=== PATIENT | male | born 1955 ===

== ENCOUNTER 2017-05-21 03:48 | Inpatient (IN) | payer MEDICARE ==
[2017-05-21 03:54] VITALS: BMI 33.7
[2017-05-21] MEDS: Sodium Chloride 0.9% 1,000 ML IV SCH ×2 (04:00→18:25)
--- NOTE | 2017-05-21 04:02 | C.PDOC ---
History Of Present Illness 61 year old male with history of bone CA was brought to the ED by EMS accompanied by for possible stroke. Patient's last known well time was 2am as per . states around 2:30 am he was confused and jaw was trembling but she assumed he was sleepy. She awoke later when she heard a thump and saw he had fallen out of bed. EMS notes patient was flaccid to the left side. Patient last had chemotherapy eariler today. Denies fever, vomiting, or diarrhea. Chief Complaint (Nursing): Weakness/Neurological Deficit History Per: EMS, Family ( ) History/Exam Limitations: no limitations Onset/Duration Of Symptoms: Hrs Current Symptoms Are (Timing): Still Present (approximately 1.5 hrs at arrival) Fall Associated With With Symptoms: No Injury As Result Of Fall Recent travel outside of the [facility] States: No Past Medical History Reviewed: Historical Data, Nursing Documentation, Vital Signs Vital Signs: Last Vital Signs Temp 97.9 F 05/21/17 16:00 Pulse 64 05/21/17 18:23 Resp 21 05/21/17 18:23 BP 127/80 05/21/17 18:23 Pulse Ox 96 05/21/17 18:23 - Medical History PMH: HTN, Malignancy Other PMH: multiple myeloma Other Surgeries: bone marrow transplant Family History: States: Unknown Family Hx - Social History Hx Tobacco Use: No Hx Alcohol Use: No Hx Substance Use: No Review Of Systems Constitutional: Negative for: Fever Cardiovascular: Negative for: Chest Pain, Palpitations Respiratory: Negative for: Cough, Shortness of Breath Gastrointestinal: Negative for: Vomiting, Diarrhea Musculoskeletal: Negative for: Neck Pain Neurological: Positive for: Weakness (left sided ), Change in Speech, Seizures, Other (haw tremor ) Physical Exam - Physical Exam Appears: In Acute Distress Skin: Warm, Dry, No Diaphoretic Head: Atraumatic, Normacephalic, No Tenderness, No Swelling, No Abrasion, No Laceration Eye(s): bilateral: Normal Inspection, PERRL, EOMI Chest: Symmetrical, No Deformity Cardiovascular: Rhythm Regular, No Murmur Respiratory: Normal Breath Sounds, No Rales, No Rhonchi, No Wheezing Extremity: No Pedal Edema, Capillary Refill (good capillary refill, less than two seconds ), No Deformity, No Swelling, Other (On exam, patient is moving upper extremities spontaneously. Lower extremtities are able to be moved with stimulation. ) ED Course And Treatment - Laboratory Results Result Diagrams: 05/21/17 04:04 05/21/17 04:04 - CT Scan/US Head CT Other Rad Studies (CT/US): Read By Radiologist, Radiology Report Reviewed CT/US Interpretation: FINDINGS: BRAIN: Diffuse, age-related cortical atrophy. No significant acute abnormality identified. No acute hemorrhage seen within the brain. No acute. extra-axial fluid collections visualized. No evidence of significant mass effect within the brain. No CT. findings to suggest an acute, large territorial infarct, however, small or early acute infarcts may not be. visible on CT. VENTRICLES: No evidence of significant hydrocephalus. BONES/ JOINTS: No acute fractures or other acute bony abnormality noted. SOFT TISSUES : No acute abnormality of the visualized soft tissues is seen. SINUSES: Mucous retention cyst and mucosal thickening in the right sphenoid sinus. There is also. high density material in the right sphenoid sinus. This finding most likely represents inspissated. secretions from longstanding sinus inflammatory disease. It can also be seen with fungal sinusitis,. however, and recommend clinical correlation. Remaining visualized paranasal sinuses appear clear. MASTOID AIR CELLS: Mastoid air cells appear clear. IMPRESSION: - No acute findings seen within the brain. - Right sphenoid sinus disease. Please see above for a full description. - See above for remaining findings. Progress Note: Code Stroke was activated. Head CT was negative. Spoke with neurology international project manager, Dr. Booker, who suggests No TPA is needed. Dr. Ayala agrees to admit patient to ICU. Dr. De Paz, medicine international project manager, was notified. Tremors of the jaw persist on re-evaluation. Patient given Atrivan 1 mg IV. NIHSS Stroke Scale - Date/Time Evaluation Performed Date Performed: 05/21/17 Time Performed: 04:00 When Was NIHSS Performed: Baseline - How Severe is the Stoke Level of Consciousness: 3=Unresponsive LOC to Questions: 2=Neither correct LOC to commands: 2=Neither correct Best Gaze: 2=Forced deviation Visual: 3=Bilateral Facial: 1=Minor asymmetry Motor Arm - Left: 4=No movement Motor Arm - Right: 3=No effort against gravity (falls immediately) Motor Leg - Left: 4=No movement Motor Leg - Right: 3=No effort against gravity (falls immediately) Limb Ataxia: 0=Absent Sensory: 2=Severe to total loss Best Language: 3=Mute Dysarthia: 2=Severe, near unintelligible or worse Extinction & Inattention (Neglect): 1=Partial neglect (mild wilton-attention) Score: 35 Severity Of Stroke: 21-42= Severe Stroke NIHSS Stroke Scale 2 - Date/Time Evaluation Performed Date Performed: 05/21/17 Time Performed: 04:00 - How Severe is the Stroke Level of Consciousness: 3=Unresponsive LOC to Questions: 2=Neither correct LOC to commands: 2=Neither correct Best Gaze: 2=Forced deviation Facial: 1=Minor asymmetry Motor Arm - Left: 2=Falls before 10 sec Motor Arm - Right: 3=No effort against gravity (falls immediately) Motor Leg - Left: 4=No movement Motor Leg - Right: 4=No movement Limb Ataxia: 0=Absent Sensory: 1=Mild to moderate loss Best Language: 3=Mute Dysarthia: 2=Severe, near unintelligible or worse Extinction & Inattention (Neglect): 1=Partial neglect (mild wilton-attention) Disposition Discussed With : Barrera De Paz Doctor Will See Patient In The: Hospital Counseled Patient/Family Regarding: Diagnosis - Disposition Disposition: HOSPITALIZED Disposition Time: 04:51 Condition: GUARDED - POA Present On Arrival: None - Clinical Impression Clinical Impression: Flaccid paralysis affecting one side of the body, Multiple myeloma, Seizure disorder - Scribe Statement The provider has reviewed the documentation as recorded by the Scribbud Otoole All medical record entries made by the Shoshanaibbud were at my direction and personally dictated by me. I have reviewed the chart and agree that the record accurately reflects my personal performance of the history, physical exam, medical decision making, and the department course for this patient. I have also personally directed, reviewed, and agree with the discharge instructions and disposition.
[2017-05-21 04:13] LABS: BASO % 0.1 % (0.0-2.0); HEMATOCRIT 35.7 % (35.0-51.0); LYMPH # 0.7 K/uL (1.0-4.3); MEAN CELL VOLUME 95.6 fL (80.0-94.0); MEAN CORPUSCULAR HEMOGLOBIN 30.8 pg (27.0-31.0); MEAN CORPUSCULAR HGB CONC 32.2 g/dL (33.0-37.0); MEAN PLATELET VOLUME 9.1 fL (7.2-11.7); MONO # 0.1 K/uL (0.0-0.8); MONO % 1.1 % (0.0-10.0); NRBC % 0.2 % (0.0-2.0); PLATELET COUNT 215 K/uL (130-400); RED CELL DISTRIBUTION WIDTH 21.5 % (11.5-14.5); WHITE BLOOD COUNT 8.6 K/uL (4.8-10.8)
[2017-05-21] MEDS ORDERED: Sodium Chloride 0.9% 1,000 ML ONE (04:22)
--- NOTE | 2017-05-21 04:31 | CT ---
EXAM: CT Head Without Intravenous Contrast EXAM DATE/TIME: 05/21/2017 3:55 AM CLINICAL HISTORY: 61 years old, male; Pain and signs and symptoms; Weakness, facial; Headache; Additional info: Code stroke bed 5 TECHNIQUE: Axial computed tomography images of the head/brain without intravenous contrast. All CT scans at this facility use one or more dose reduction techniques, viz.: automated exposure control; ma/kV adjustment per patient size (including targeted exams where dose is matched to indication; i.e. head); or iterative reconstruction technique. Sagittal reformatted images were created and reviewed. COMPARISON: No relevant prior studies available. FINDINGS: BRAIN: Diffuse, age-related cortical atrophy. No significant acute abnormality identified. No acute hemorrhage seen within the brain. No acute extra-axial fluid collections visualized. No evidence of significant mass effect within the brain. No CT findings to suggest an acute, large territorial infarct, however, small or early acute infarcts may not be visible on CT. VENTRICLES: No evidence of significant hydrocephalus. BONES/JOINTS: No acute fractures or other acute bony abnormality noted. SOFT TISSUES: No acute abnormality of the visualized soft tissues is seen. SINUSES: Mucous retention cyst and mucosal thickening in the right sphenoid sinus. There is also high density material in the right sphenoid sinus. This finding most likely represents inspissated secretions from longstanding sinus inflammatory disease. It can also be seen with fungal sinusitis, however, and recommend clinical correlation. Remaining visualized paranasal sinuses appear clear. MASTOID AIR CELLS: Mastoid air cells appear clear. IMPRESSION: - No acute findings seen within the brain. - Right sphenoid sinus disease. Please see above for a full description. - See above for remaining findings.
[2017-05-21 04:40] LABS: CHLORIDE 103 mmol/L (98-107); SODIUM 139 mmol/L (132-148)
[2017-05-21 04:42] LABS: ALB/GLOB RATIO 1.2 (1.0-2.1); ALKALINE PHOSPHATASE 50 U/L (38-126); AST/SGOT 25 U/L (17-59); BILIRUBIN,TOTAL 0.6 mg/dL (0.2-1.3); BLOOD UREA NITROGEN 16 mg/dL (9-20); CARBON DIOXIDE 17 mmol/L (22-30); CHOLESTEROL 317 mg/dL (0-199); GFR AFRICAN-AMERICAN > 60; GLUCOSE,RANDOM 328 mg/dL (75-110); TOTAL PROTEIN 7.4 g/dL (6.3-8.3)
[2017-05-21 04:43] LABS: ALT/SGPT 44 U/L (21-72); CALCIUM 8.8 mg/dl (8.6-10.4)
[2017-05-21 05:30] LABS: METAMYELOCYTE 1 % (0-0); NEUTROPHIL 88 % (50-75); TOTAL CELLS COUNTED 100
--- NOTE | 2017-05-21 05:55 | CP.PCM.CON ---
History of Present Illness - History of Present Illness History of Present Illness: 61 year old male with history of multiple myeloma ,HTN,DM brought to the ED by EMS accompanied by after being found on the floor. Patient's last known well time was 2am as per . states around 2:30 am he was confused and jaw was trembling but she assumed he was sleepy. She awoke later when she heard a thump and found the patient on the kitchen floor. EMS notes patient was flaccid to the left side. Patient last had chemotherapy 05/20/17. Denies fever, vomiting, or diarrhea. As per ER physician patient was not moving left side when he came in,later was able to move left leg Patient with h/o multiple myeloma s/p allogenic and autologous bone marrow transplants currently on chemotherapy. Patient completed course of radiation to lower back for tumor in the spine after which he had diarrhea. doesnot know whether patient still has diarrhea. He was on Xarelto until 3-4 days ago for prevention of chemo induced thrombosis.After stopping chemo patient was started on aspirin. history from patients ,ER physician Patient doses not follow verbal commands ,moved right upper extremity spontaneously and both lower extremities in response to pain Review of Systems - Review of Systems Systems not reviewed;Unavailable: Unstable Vital Signs, Altered Mental Status Review of Systems: unable to get information from patient Past Patient History - Infectious Disease Hx of Infectious Diseases: None - Past Medical History & Family History Past Medical History?: Yes - Past Social History Smoking Status: Never Smoked Cigar Use: No Alcohol: None Drugs: Denies - ENDOCRINE/METABOLIC Hx Diabetes Mellitus Type 2: Yes - HEMATOLOGICAL/ONCOLOGICAL Hx Blood Disorders: Yes Hx Cancer: Yes (Bone marrow) Other/Comment: pt. undergoing Chemotherapy 3 times a month - PSYCHIATRIC Hx Substance Use: No - SURGICAL HISTORY Hx Surgeries: Yes Other/Comment: uvoectomy - ANESTHESIA Hx Anesthesia: Yes Hx Anesthesia Reactions: No Meds Allergies/Adverse Reactions: Allergies Allergy/AdvReac Type Severity Reaction Status Date / Time prochlorperazine Allergy Verified 05/21/17 04:11 [From Compazine] - Medications Medications: Current Medications Sodium Chloride (Sodium Chloride 0.9%) 1,000 mls @ 100 mls/hr IV .Q10H DAXA Last Admin: 05/21/17 04:00 Dose: 100 mls/hr Physical Exam - Constitutional Appears: No Acute Distress Additional comments: involuntary movements of lower lip on the left and left thumb - Head Exam Head Exam: ATRAUMATIC, NORMAL INSPECTION, NORMOCEPHALIC - Eye Exam Eye Exam: Normal appearance, PERRL. absent: Conjunctival injection, Periorbital swelling, Scleral icterus - ENT Exam Additional comments: patient will not open mouth - Neck Exam Neck exam: Positive for: Normal Inspection. Negative for: Tenderness - Respiratory Exam Respiratory Exam: Clear to Auscultation Bilateral. absent: Respiratory Distress - Cardiovascular Exam Cardiovascular Exam: Tachycardia, REGULAR RHYTHM. absent: JVD, Systolic Murmur - GI/Abdominal Exam GI & Abdominal Exam: Distended, Normal Bowel Sounds. absent: Tenderness - Exam Exam: NORMAL INSPECTION - Extremities Exam Extremities exam: Positive for: normal inspection, pedal pulses present. Negative for: calf tenderness Additional comments: trace bilateral lower extremity ankle edema - Neurological Exam Neurological exam: Altered - Skin Skin Exam: Normal Color, Warm Additional comments: abrasion anterior abdominal wall Results - Vital Signs Recent Vital Signs: Last Vital Signs Temp 97.8 F 05/21/17 03:55 Pulse 104 H 05/21/17 05:40 Resp 25 H 05/21/17 05:40 BP 153/101 H 05/21/17 05:40 Pulse Ox 96 05/21/17 05:40 - Labs Result Diagrams: 05/21/17 04:04 05/21/17 04:04 Labs: Laboratory Results - last 24 hr 05/21/17 05/21/17 05/21/17 03:53 04:04 04:04 WBC 8.6 RBC 3.74 L Hgb 11.5 L Hct 35.7 MCV 95.6 H MCH 30.8 MCHC 32.2 L RDW 21.5 H Plt Count 215 MPV 9.1 Neut % (Auto) 90.8 H Lymph % (Auto) 8.0 L [place] % (Auto) 1.1 Eos % (Auto) 0.0 Baso % (Auto) 0.1 Neut # 7.8 H Lymph # 0.7 L [place] # 0.1 Eos # 0.0 Baso # 0.0 Neutrophils % (Manual) 88 H Lymphocytes % (Manual) 8 L Monocytes % (Manual) 3 Metamyelocytes % 1 H Platelet Estimate Normal Anisocytosis (manual) Slight PT 11.4 INR 1.0 APTT 24 Sodium Potassium Chloride Carbon Dioxide Anion Gap BUN Creatinine Est GFR ( Amer) Est GFR (Non-Af Amer) POC Glucose (mg/dL) 340 H Random Glucose Calcium Total Bilirubin AST ALT Alkaline Phosphatase Total Creatine Kinase CK-MB (Mass) Troponin I, Quant NT-Pro-B Natriuret Pep Total Protein Albumin Globulin Albumin/Globulin Ratio Triglycerides Cholesterol LDL Cholesterol Direct HDL Cholesterol 05/21/17 04:04 WBC RBC Hgb Hct MCV MCH MCHC RDW Plt Count MPV Neut % (Auto) Lymph % (Auto) [place] % (Auto) Eos % (Auto) Baso % (Auto) Neut # Lymph # [place] # Eos # Baso # Neutrophils % (Manual) Lymphocytes % (Manual) Monocytes % (Manual) Metamyelocytes % Platelet Estimate Anisocytosis (manual) PT INR APTT Sodium 139 Potassium 5.0 Chloride 103 Carbon Dioxide 17 L Anion Gap 24 H BUN 16 Creatinine 1.0 Est GFR ( Amer) > 60 Est GFR (Non-Af Amer) > 60 POC Glucose (mg/dL) Random Glucose 328 H Calcium 8.8 Total Bilirubin 0.6 AST 25 ALT 44 Alkaline Phosphatase 50 Total Creatine Kinase 28 L CK-MB (Mass) 0.65 Troponin I, Quant < 0.0120 NT-Pro-B Natriuret Pep 259 Total Protein 7.4 Albumin 4.0 Globulin 3.4 Albumin/Globulin Ratio 1.2 Triglycerides 89 Cholesterol 317 H LDL Cholesterol Direct 247 H HDL Cholesterol 67 - EKG Data EKG Interpreted by: Myself EKG shows normal: Sinus rhythm Rate: Tachycardia - Imaging and Cardiology CT scan - head Status: Image reviewed by me, Report reviewed by me Assessment & Plan - Assessment and Plan (Free Text) Assessment: 1.R/O CVA-patient with altered mental status and flaccid left upper extremity CT brain no acute findings ER physician discussed patient with Neurologist who recommended MRI/MRA of Brain 2.DM insulin coverage 3.HTN-monitor and treat as needed 4.Hyperlipidemia 5.Multiple myeloma being f/u at [facility] .received chemo 05/20/17 6.Anemia-f/u H/H
[2017-05-21] MEDS: (Novolin R) Insulin Human Regular 100 units/ml vial SC SCH ×3 (06:30→18:17)
[2017-05-21] MEDS: Nitroglycerin 2% Ointment Foilpak UD TOP SCH ×3 (07:40→18:20)
--- NOTE | 2017-05-21 07:51 | RAD ---
HISTORY: code stroke bed 5 COMPARISON: No prior. FINDINGS: A right-sided life port catheter and placed a to turn the right atrium by an apparent right subclavian approach. LUNGS: There is questionable airspace disease silhouetting the left heart border at its midportion laterally. This is not definite. No infiltrate is seen in the right chest. PLEURA: No significant pleural effusion identified, no pneumothorax apparent. CARDIOVASCULAR: Normal. OSSEOUS STRUCTURES: No significant abnormalities. VISUALIZED UPPER ABDOMEN: Normal. OTHER FINDINGS: None. IMPRESSION: Questionable trace lingular airspace disease. Life port catheter in position at the right chest.
[2017-05-21] MEDS: Dexmedetomidine Hydrochloride 200 MCG in Sodium Chloride 0.9% 48 ML IV PRN ×3 (08:30→21:00)
--- NOTE | 2017-05-21 15:16 | CP.PCM.CON ---
History of Present Illness - History of Present Illness History of Present Illness: Mr. Golden is a 61-year-old man with a past medical history of multiple myeloma, who has been on chemotherapy for the past 10 years, but recently had to change his infusions. He received an infusion of a protease inhibitor (Velcade?) yesterday. At 2:30 AM, he developed confusion and shaking that his noticed. That subsided. She went back to sleep and was woken up with a thumb and found her on the floor shaking. EMS was called, and he had a witnessed seizure on the way to the hospital. Afterward, he has been agitated and aggressive in a post-ictal state. He could not obtain the MRI due to the agitation. He was given a total of 9 mg of Ativan, but this seemed to worsen his behavior. He was subsequently started on Precedex and this finally worked to subdue him. His family is at bedside and are concerned about this change since he is normally a very calm person. His medical records are all at [place], where he has been receiving his therapy. Review of Systems - Review of Systems Systems not reviewed;Unavailable: Altered Mental Status, Uncooperative Past Patient History - Infectious Disease Hx of Infectious Diseases: None - Past Medical History & Family History Past Medical History?: Yes - Past Social History Smoking Status: Never Smoked Cigar Use: No Alcohol: None Drugs: Denies - CARDIAC Hx Cardiac Disorders: Yes Hx Atrial Fibrillation: Yes - PULMONARY Hx Respiratory Disorders: No - NEUROLOGICAL Hx Neurological Disorder: No - HEENT Hx HEENT Problems: No - RENAL Hx Chronic Kidney Disease: No - ENDOCRINE/METABOLIC Hx Diabetes Mellitus Type 2: Yes - HEMATOLOGICAL/ONCOLOGICAL Hx Blood Disorders: Yes Hx Cancer: Yes (Bone marrow) Other/Comment: pt. undergoing Chemotherapy 3 times a month - INTEGUMENTARY Hx Dermatological Problems: No - MUSCULOSKELETAL/RHEUMATOLOGICAL Hx Musculoskeletal Disorders: Yes Hx Falls: Yes (s/p fall at home) - GASTROINTESTINAL Hx Gastrointestinal Disorders: No - GENITOURINARY/GYNECOLOGICAL Hx Genitourinary Disorders: No - PSYCHIATRIC Hx Substance Use: No - SURGICAL HISTORY Hx Surgeries: Yes Other/Comment: uvoectomy - ANESTHESIA Hx Anesthesia: Yes Hx Anesthesia Reactions: No Meds Allergies/Adverse Reactions: Allergies Allergy/AdvReac Type Severity Reaction Status Date / Time prochlorperazine Allergy Verified 05/21/17 04:11 [From Compazine] - Medications Medications: Current Medications Sodium Chloride (Sodium Chloride 0.9%) 1,000 mls @ 100 mls/hr IV .Q10H [facility] Last Admin: 05/21/17 04:00 Dose: 100 mls/hr Dexmedetomidine HCl 200 mcg/ (Sodium Chloride) 50 mls @ 5.17 mls/hr IV TITR PRN ; Protocol; 0.2 MCG/KG/HR PRN Reason: Agitation Last Admin: 05/21/17 08:30 Dose: 0.2 mcg/kg/hr, 5.17 mls/hr Insulin Human Regular (Novolin R) 0 unit SC Q6H DAXA PRN Reason: Protocol Last Admin: 05/21/17 06:30 Dose: Not Given Nitroglycerin (Nitro-Bid 2% Oint) 1 ea TOP Q6H [facility] Last Admin: 05/21/17 07:40 Dose: 1 ea Pantoprazole Sodium (Protonix Inj) 40 mg IVP DAILY [facility] Last Admin: 05/21/17 09:36 Dose: 40 mg Physical Exam - Constitutional Appears: Well, No Acute Distress - Head Exam Head Exam: ATRAUMATIC, NORMAL INSPECTION - Eye Exam Pupil Exam: PERRL - ENT Exam ENT Exam: Mucous Membranes Moist - Neck Exam Neck exam: Positive for: Normal Inspection - Respiratory Exam Respiratory Exam: Clear to Auscultation Bilateral - Cardiovascular Exam Cardiovascular Exam: REGULAR RHYTHM, +S1, +S2 - GI/Abdominal Exam GI & Abdominal Exam: Normal Bowel Sounds, Soft - Rectal Exam Rectal Exam: Deferred - Extremities Exam Extremities exam: Positive for: normal inspection - Back Exam Back exam: NORMAL INSPECTION - Neurological Exam Additional comments: Currently sedated on Precedex. Pupils are constricted and sluggishly reactive. Brainstem reflexes are all intact. He moves spontaneously, but not to command. All extremities appear to be moving. Plantar responses were downgoing. Results - Vital Signs Recent Vital Signs: Last Vital Signs Temp 98.2 F 05/21/17 06:00 Pulse 97 H 05/21/17 10:00 Resp 20 05/21/17 10:00 BP 101/68 05/21/17 09:22 Pulse Ox 93 L 05/21/17 10:00 - Labs Result Diagrams: 05/21/17 04:04 05/21/17 04:04 Labs: Laboratory Results - last 24 hr 05/21/17 05/21/17 05/21/17 03:53 04:04 04:04 WBC 8.6 RBC 3.74 L Hgb 11.5 L Hct 35.7 MCV 95.6 H MCH 30.8 MCHC 32.2 L RDW 21.5 H Plt Count 215 MPV 9.1 Neut % (Auto) 90.8 H Lymph % (Auto) 8.0 L [place] % (Auto) 1.1 Eos % (Auto) 0.0 Baso % (Auto) 0.1 Neut # 7.8 H Lymph # 0.7 L [place] # 0.1 Eos # 0.0 Baso # 0.0 Neutrophils % (Manual) 88 H Lymphocytes % (Manual) 8 L Monocytes % (Manual) 3 Metamyelocytes % 1 H Platelet Estimate Normal Anisocytosis (manual) Slight PT 11.4 INR 1.0 APTT 24 Sodium Potassium Chloride Carbon Dioxide Anion Gap BUN Creatinine Est GFR ( Amer) Est GFR (Non-Af Amer) POC Glucose (mg/dL) 340 H Random Glucose Hemoglobin A1c Calcium Total Bilirubin AST ALT Alkaline Phosphatase Total Creatine Kinase CK-MB (Mass) Troponin I, Quant NT-Pro-B Natriuret Pep Total Protein Albumin Globulin Albumin/Globulin Ratio Triglycerides Cholesterol LDL Cholesterol Direct HDL Cholesterol Urine Opiates Screen Urine Methadone Screen Ur Barbiturates Screen Ur Phencyclidine Scrn Ur Amphetamines Screen U Benzodiazepines Scrn U Oth Cocaine Metabols U Cannabinoids Screen 05/21/17 05/21/17 05/21/17 04:04 04:04 13:58 WBC RBC Hgb Hct MCV MCH MCHC RDW Plt Count MPV Neut % (Auto) Lymph % (Auto) [place] % (Auto) Eos % (Auto) Baso % (Auto) Neut # Lymph # [place] # Eos # Baso # Neutrophils % (Manual) Lymphocytes % (Manual) Monocytes % (Manual) Metamyelocytes % Platelet Estimate Anisocytosis (manual) PT INR APTT Sodium 139 Potassium 5.0 Chloride 103 Carbon Dioxide 17 L Anion Gap 24 H BUN 16 Creatinine 1.0 Est GFR ( Amer) > 60 Est GFR (Non-Af Amer) > 60 POC Glucose (mg/dL) Random Glucose 328 H Hemoglobin A1c 8.7 H Calcium 8.8 Total Bilirubin 0.6 AST 25 ALT 44 Alkaline Phosphatase 50 Total Creatine Kinase 28 L CK-MB (Mass) 0.65 Troponin I, Quant < 0.0120 NT-Pro-B Natriuret Pep 259 Total Protein 7.4 Albumin 4.0 Globulin 3.4 Albumin/Globulin Ratio 1.2 Triglycerides 89 Cholesterol 317 H LDL Cholesterol Direct 247 H HDL Cholesterol 67 Urine Opiates Screen Negative Urine Methadone Screen Negative Ur Barbiturates Screen Negative Ur Phencyclidine Scrn Negative Ur Amphetamines Screen Negative U Benzodiazepines Scrn Positive U Oth Cocaine Metabols Negative U Cannabinoids Screen Negative - Imaging and Cardiology CT scan - head Status: Image reviewed by me, Report reviewed by me (No acute findings. ) Assessment & Plan (1) Seizure disorder Assessment and Plan: This could be related to cancer (possible metastasis), chemotherapy causing PRES or other intracranial abnormality, or inducing seizures. I recommend loading with Keppra 1000 mg and obtaining and MRI of the brain with and without contrast as well as an MRA of the head/neck without contrast. An EEG is also recommended. We may use Depakote 1000 mg prior to MRI if he continues to be agitated since the Precedex will need to be stopped due to incompatible IV tubing with the MRI. I recommend DVT prophylaxis and continuing frequent neurological examinations ( Q2 hours). Avoid hypertension, fever, hyperglycemia or hyponatremia. Avoid using benzodiazepines since he seems to be having a paradoxical reaction, unless he has another seizure, in which case it is warranted to give 4 mg of Ativan IV. Thank you. Status: Acute Priority: High
[2017-05-21] MEDS ORDERED: Valproate 1,000 MG in Sodium Chloride 0.9% 100 ML IVPB ONE (16:00)
--- NOTE | 2017-05-21 17:11 | MRI ---
PROCEDURE: Magnetic Resonance Angiography Brain HISTORY: CODE STROKE COMPARISON: None available. TECHNIQUE: 3D time of flight MR angiography of the intracranial arteries was performed. Rotating maximum intensity projection images were generated. FINDINGS: INTERNAL CAROTID ARTERIES: Unremarkable. The skull base, petrous, right cavernous and supraclinoid segments are bilaterally widely patient. A moderate to severe stenosis of the mid left cavernous internal carotid segment is suggested. Motion artifacts degrade the quality this examination. ANTERIOR CEREBRAL ARTERIES: Unremarkable. A1 and A2 segments are patent, although a persistent origin right A1 segment is suggested. . Smaller distal branches limited in evaluation due to motion artifacts. MIDDLE CEREBRAL ARTERIES: Unremarkable. M1 and M2 segments are patent. Perisylvian branches appear relatively symmetric though motion artifacts degrade evaluation of the distal branches of the bilateral middle cerebral arteries. POSTERIOR CIRCULATION: Basilar Artery: A mild stenosis is not excluded proximally with moderate ectasis seen throughout the vessel. Distal Vertebral Arteries: Multifocal [id number] stenoses are not excluded but not necessarily favored either given the minor motion artifact limits examination. A high-grade distal left vertebral artery stenosis is not excluded Posterior Cerebral Arteries: The bilateral posterior arteries appear patent though high-grade stenosis is difficult to exclude the distal left P2 segment. Posterior Inferior Cerebellar Arteries: Not clearly identified. ANEURYSM/ VASCULAR MALFORMATIONS: None. OTHER FINDINGS: None. IMPRESSION: Limited brain MR angiogram due to extensive motion artifacts with high-grade stenoses likely at the cavernous left internal carotid artery segment and possibly the distal left OPERATIONS TECHNICIAN as well as the distal left vertebral artery. Motion artifacts severely limit this examination. No major [place] arterial branch occlusion is identified at this time. Consider repeat MR angiography when feasible.
--- NOTE | 2017-05-21 18:01 | MRI ---
PROCEDURE: MRI BRAIN WITHOUT CONTRAST HISTORY: CODE STROKE COMPARISON: Comparison is made to the previous CT 05/21/2017 TECHNIQUE: Multiplanar, multisequence MR images of the brain were obtained without intravenous contrast enhancement. FINDINGS: HEMORRHAGE: None DWI: No evidence of an acute or early subacute infarction. BRAIN PARENCHYMA: No mass effect or edema. Mild atrophy and mild white matter changes suggestive but nonspecific for chronic microvascular ischemic disease. VENTRICLES: Unremarkable. No hydrocephalus. CRANIUM: Unremarkable. ORBITS: Grossly unremarkable. PARANASAL SINUSES/MASTOIDS: Almost complete opacification of the right sphenoid sinus is again noted. VASCULAR SYSTEM: Skull base flow voids intact. OTHER FINDINGS: None. IMPRESSION: No evidence of acute infarction. No evidence of mass lesion mass effect or midline shift. Suboptimal study due to the patient's motion.
--- NOTE | 2017-05-21 22:59 | CP.PCM.HP ---
History of Present Illness - History of Present Illness History of Present Illness: Cheif complain: AMS with shaking of lips and body HPI: 61 year old white male with history of Multiple Myeloma and he is on chemotherapy at [facility] and when he was brought to the ED by EMS accompanied by for possible stroke, according to family she noticed shaking around his lips that got worse with shaking around his extremitis, pt got weak and drowsy. Patient's last known well time was 2am as per . states around 2:30 am he was confused and jaw was trembling but she assumed he was sleepy. She awoke later when she heard a thump and saw he had fallen out of bed. EMS notes patient was flaccid to the left side. Patient last had chemotherapy eariler today. Denies fever, vomiting, or diarrhea.There is no h/o head injury, alcohol abiuse or smoking.prior to this epsidoe according to pt never complain of dizziness, chest pain, abdominal pain, diarrhea. Present on Admission - Present on Admission Any Indicators Present on Admission: Yes Review of Systems - Review of Systems Systems not reviewed;Unavailable: Altered Mental Status - Constitutional Constitutional: Weakness. absent: As Per HPI, Anorexia, Chills, Daytime Sleepiness, Excessive Sweating, Fatigue, Fever, Frequent Falls, Headache, Increased Appetite, Lethargy, Malaise, Night Sweats, Snoring, Sleep Apnea, Weight Gain, Weight Loss, Other - EENT Eyes: absent: As Per HPI, Blind Spots, Blurred Vision, Change in Vision, Decreased Night Vision, Diplopia, Discharge, Dry Eye, Exophthalmos, Floaters, Irritation, Itchy Eyes, Loss of Peripheral Vision, Pain, Photophobia, Requires Corrective Lenses, Sees Flashes, Spots in Vision, Tunnel Vision, Other Visual Disturbances, Loss of Vision, Other Ears: absent: As Per HPI, Decreased Hearing, Ear Discharge, Ear Pain, Tinnitus, Abnormal Hearing, Disequilibrium, Dizziness, Other Nose/Mouth/Throat: absent: As Per HPI, Epistaxis, Nasal Congestion, Nasal Discharge, Nasal Obstruction, Nasal Trauma, Nose Pain, Post Nasal Drip, Sinus Pain, Sinus Pressure, Bleeding Gums, Change in Voice, Dental Pain, Dry Mouth, Dysphagia, Halitosis, Hoarsness, Lip Swelling, Mouth Lesions, Mouth Pain, Odynophagia, Sore Throat, Throat Swelling, Tongue Swelling, Facial Pain, Neck Pain, Neck Mass, Other - Neurological Neurological: absent: As Per HPI, Abnormal Gait, Abnormal Hearing, Abnormal Movements, Abnormal Speech, Behavioral Changes, Burning Sensations, Confusion, Convulsions, Disequilibrium, Dizziness, Numbness, Focal Weakness, Frequent Falls , Headaches, Lack of Coordination, Loss of Vision, Memory Loss, Paresthesias, Radicular Pain, Restless Legs, Sensory Deficit, Syncope, Tingling, Tremor, Vertigo, Weakness, Other Visual Disturbances, Other - Psychiatric Psychiatric: absent: As Per HPI, Abnormal Sleep Pattern, Anhedonia, Anxiety, Auditory Hallucinations, Behavioral Changes, Change in Appetite, Change in Libido, Confusion, Depression, Difficulty Concentrating, Hallucinations, Homicidal Ideation, Hopelessness, Irritability, Memory Loss, Mood Swings, Panic Attacks, Paranoia, Suicidal Ideation, Visual Hallucinations, Tactile Hallucinations, Other Past Patient History - Infectious Disease Hx of Infectious Diseases: None - Past Medical History & Family History Past Medical History?: Yes - Past Social History Smoking Status: Never Smoked Cigar Use: No Alcohol: None Drugs: Denies - CARDIAC Hx Hypertension: Yes - PULMONARY Hx Respiratory Disorders: No - NEUROLOGICAL Hx Neurological Disorder: No - HEENT Hx HEENT Problems: No - RENAL Hx Chronic Kidney Disease: No - ENDOCRINE/METABOLIC Hx Diabetes Mellitus Type 2: Yes - HEMATOLOGICAL/ONCOLOGICAL Hx Blood Disorders: Yes Hx Cancer: Yes (Bone marrow) Other/Comment: pt. undergoing Chemotherapy 3 times a month - INTEGUMENTARY Hx Dermatological Problems: No - MUSCULOSKELETAL/RHEUMATOLOGICAL Hx Musculoskeletal Disorders: Yes Hx Falls: Yes (s/p fall at home) - GASTROINTESTINAL Hx Gastrointestinal Disorders: No - GENITOURINARY/GYNECOLOGICAL Hx Genitourinary Disorders: No - PSYCHIATRIC Hx Substance Use: No - SURGICAL HISTORY Hx Surgeries: Yes Other/Comment: uvoectomy - ANESTHESIA Hx Anesthesia: Yes Hx Anesthesia Reactions: No Meds Allergies/Adverse Reactions: Allergies Allergy/AdvReac Type Severity Reaction Status Date / Time prochlorperazine Allergy Verified 05/21/17 04:11 [From Compazine] Physical Exam - Constitutional Appears: No Acute Distress Additional comments: elderly male who is not arousable he is breathing - Eye Exam Eye Exam: EOMI, Normal appearance, PERRL Pupil Exam: NORMAL ACCOMODATION, PERRL - ENT Exam Additional comments: mouth close unable to access - Neck Exam Neck exam: Positive for: Normal Inspection - Respiratory Exam Respiratory Exam: Clear to Auscultation Bilateral, NORMAL BREATHING PATTERN - Cardiovascular Exam Cardiovascular Exam: REGULAR RHYTHM - GI/Abdominal Exam GI & Abdominal Exam: Normal Bowel Sounds, Soft. absent: Tenderness - Rectal Exam Additional comments: cannot perform due to pt being uncooperative drowsy - Neurological Exam Additional comments: drowsy withdrwas with pain Results - Vital Signs Recent Vital Signs: Last Vital Signs Temp 97.9 F 05/21/17 16:00 Pulse 58 L 05/21/17 21:23 Resp 20 05/21/17 21:23 BP 129/84 05/21/17 21:23 Pulse Ox 100 05/21/17 21:23 - Labs Result Diagrams: 05/22/17 05:34 05/22/17 05:34 Labs: Laboratory Results - last 24 hr 05/21/17 05/21/17 05/21/17 03:53 04:04 04:04 WBC 8.6 RBC 3.74 L Hgb 11.5 L Hct 35.7 MCV 95.6 H MCH 30.8 MCHC 32.2 L RDW 21.5 H Plt Count 215 MPV 9.1 Neut % (Auto) 90.8 H Lymph % (Auto) 8.0 L [place] % (Auto) 1.1 Eos % (Auto) 0.0 Baso % (Auto) 0.1 Neut # 7.8 H Lymph # 0.7 L [place] # 0.1 Eos # 0.0 Baso # 0.0 Neutrophils % (Manual) 88 H Lymphocytes % (Manual) 8 L Monocytes % (Manual) 3 Metamyelocytes % 1 H Platelet Estimate Normal Anisocytosis (manual) Slight PT 11.4 INR 1.0 APTT 24 Sodium Potassium Chloride Carbon Dioxide Anion Gap BUN Creatinine Est GFR ( Amer) Est GFR (Non-Af Amer) POC Glucose (mg/dL) 340 H Random Glucose Hemoglobin A1c Calcium Total Bilirubin AST ALT Alkaline Phosphatase Total Creatine Kinase CK-MB (Mass) Troponin I, Quant NT-Pro-B Natriuret Pep Total Protein Albumin Globulin Albumin/Globulin Ratio Triglycerides Cholesterol LDL Cholesterol Direct HDL Cholesterol Urine Opiates Screen Urine Methadone Screen Ur Barbiturates Screen Ur Phencyclidine Scrn Ur Amphetamines Screen U Benzodiazepines Scrn U Oth Cocaine Metabols U Cannabinoids Screen 10/12/0205/21/17 05/21/17 04:04 04:04 13:58 WBC RBC Hgb Hct MCV MCH MCHC RDW Plt Count MPV Neut % (Auto) Lymph % (Auto) [place] % (Auto) Eos % (Auto) Baso % (Auto) Neut # Lymph # [place] # Eos # Baso # Neutrophils % (Manual) Lymphocytes % (Manual) Monocytes % (Manual) Metamyelocytes % Platelet Estimate Anisocytosis (manual) PT INR APTT Sodium 139 Potassium 5.0 Chloride 103 Carbon Dioxide 17 L Anion Gap 24 H BUN 16 Creatinine 1.0 Est GFR ( Amer) > 60 Est GFR (Non-Af Amer) > 60 POC Glucose (mg/dL) Random Glucose 328 H Hemoglobin A1c 8.7 H Calcium 8.8 Total Bilirubin 0.6 AST 25 ALT 44 Alkaline Phosphatase 50 Total Creatine Kinase 28 L CK-MB (Mass) 0.65 Troponin I, Quant < 0.0120 NT-Pro-B Natriuret Pep 259 Total Protein 7.4 Albumin 4.0 Globulin 3.4 Albumin/Globulin Ratio 1.2 Triglycerides 89 Cholesterol 317 H LDL Cholesterol Direct 247 H HDL Cholesterol 67 Urine Opiates Screen Negative Urine Methadone Screen Negative Ur Barbiturates Screen Negative Ur Phencyclidine Scrn Negative Ur Amphetamines Screen Negative U Benzodiazepines Scrn Positive U Oth Cocaine Metabols Negative U Cannabinoids Screen Negative 05/21/17 18:13 WBC RBC Hgb Hct MCV MCH MCHC RDW Plt Count MPV Neut % (Auto) Lymph % (Auto) [place] % (Auto) Eos % (Auto) Baso % (Auto) Neut # Lymph # [place] # Eos # Baso # Neutrophils % (Manual) Lymphocytes % (Manual) Monocytes % (Manual) Metamyelocytes % Platelet Estimate Anisocytosis (manual) PT INR APTT Sodium Potassium Chloride Carbon Dioxide Anion Gap BUN Creatinine Est GFR ( Amer) Est GFR (Non-Af Amer) POC Glucose (mg/dL) 278 H Random Glucose Hemoglobin A1c Calcium Total Bilirubin AST ALT Alkaline Phosphatase Total Creatine Kinase CK-MB (Mass) Troponin I, Quant NT-Pro-B Natriuret Pep Total Protein Albumin Globulin Albumin/Globulin Ratio Triglycerides Cholesterol LDL Cholesterol Direct HDL Cholesterol Urine Opiates Screen Urine Methadone Screen Ur Barbiturates Screen Ur Phencyclidine Scrn Ur Amphetamines Screen U Benzodiazepines Scrn U Oth Cocaine Metabols U Cannabinoids Screen Assessment & Plan (1) Altered mental status Assessment and Plan: post Ictal state could be due to seizure pt recived KEPPRA Status: Acute (2) Multiple myeloma Assessment and Plan: on chemotherapy Pt family requested to transfer at [facility] arrangments have been made monitoring pt will inform the pt family unfold Status: Acute
[2017-05-22] MEDS: (Novolin R) Insulin Human Regular 100 units/ml vial SC SCH ×2 (00:30→06:30)
[2017-05-22] MEDS: Nitroglycerin 2% Ointment Foilpak UD TOP SCH ×2 (00:30→06:40)
[2017-05-22] MEDS: Sodium Chloride 0.9% 1,000 ML IV SCH (04:00)
[2017-05-22 04:16] VITALS: RESP 19
[2017-05-22 05:53] LABS: BASO % 0.1 % (0.0-2.0); EOS % 0.1 % (0.0-4.0); HEMATOCRIT 28.9 % (35.0-51.0); LYMPH # 0.7 K/uL (1.0-4.3); LYMPH % 8.8 % (20.0-40.0); MEAN CELL VOLUME 94.7 fL (80.0-94.0); MEAN CORPUSCULAR HEMOGLOBIN 30.9 pg (27.0-31.0); MEAN CORPUSCULAR HGB CONC 32.6 g/dL (33.0-37.0); MONO % 12.9 % (0.0-10.0); NRBC % 0.3 % (0.0-2.0); PLATELET COUNT 161 K/uL (130-400); WHITE BLOOD COUNT 7.9 K/uL (4.8-10.8)
[2017-05-22 06:03] LABS: CHLORIDE 105 mmol/L (98-107); POTASSIUM 4.2 mmol/L (3.6-5.2); SODIUM 135 mmol/L (132-148)
[2017-05-22 06:05] LABS: BILIRUBIN,TOTAL 0.4 mg/dL (0.2-1.3); CARBON DIOXIDE 21 mmol/L (22-30); GFR AFRICAN-AMERICAN > 60
[2017-05-22 06:06] LABS: ALB/GLOB RATIO 1.1 (1.0-2.1); ALKALINE PHOSPHATASE 40 U/L (38-126); ALT/SGPT 39 U/L (21-72); AST/SGOT 15 U/L (17-59); BLOOD UREA NITROGEN 22 mg/dL (9-20); CALCIUM 7.9 mg/dl (8.6-10.4); GLUCOSE,RANDOM 190 mg/dL (75-110); MAGNESIUM 2.4 mg/dL (1.6-2.3); PHOSPHOROUS 3.6 mg/dL (2.5-4.5)
[2017-05-22 06:40] VITALS: BP 128/72; PULSE 66; O2SAT 96
--- NOTE | 2017-05-22 07:38 | CP.PCM.PN ---
Subjective - Date & Time of Evaluation Date of Evaluation: 05/22/17 Time of Evaluation: 09:25 Objective - Vital Signs/Intake and Output Vital Signs (last 24 hours): Temp Pulse Resp BP Pulse Ox 97.8 F 66 19 128/72 96 05/22/17 04:00 05/22/17 06:02 05/22/17 06:02 05/22/17 06:02 05/22/17 06:02 Intake and Output: 05/22/17 05/22/17 06:59 18:59 Intake Total 1416.4 Output Total 700 Balance 716.4 - Medications Medications: Current Medications Sodium Chloride (Sodium Chloride 0.9%) 1,000 mls @ 100 mls/hr IV .Q10H DAXA Last Admin: 05/22/17 04:00 Dose: 100 mls/hr Dexmedetomidine HCl 200 mcg/ (Sodium Chloride) 50 mls @ 5.17 mls/hr IV TITR PRN ; Protocol; 0.2 MCG/KG/HR PRN Reason: Agitation Last Titration: 05/22/17 05:00 Dose: 0 mcg/kg/hr, 0 mls/hr Insulin Human Regular (Novolin R) 0 unit SC Q6H DAXA PRN Reason: Protocol Last Admin: 05/22/17 06:30 Dose: Not Given Nitroglycerin (Nitro-Bid 2% Oint) 1 ea TOP Q6H DAXA Last Admin: 05/22/17 06:40 Dose: 1 ea Pantoprazole Sodium (Protonix Inj) 40 mg IVP DAILY DAXA Last Admin: 05/21/17 09:36 Dose: 40 mg - Labs Labs: 05/22/17 05:34 05/22/17 05:34 PT 11.4 SECONDS (9.7-12.2) 05/21/17 04:04 INR 1.0 05/21/17 04:04 APTT 24 SECONDS (21-34) 05/21/17 04:04 Assessment and Plan (1) Altered mental status Status: Acute (2) Multiple myeloma Status: Acute
[2017-05-22 07:50] VITALS: TEMP 97.4
[2017-05-22 08:15] LABS: NEUTROPHIL 79 % (50-75); TOTAL CELLS COUNTED 100
--- NOTE | 2017-05-22 10:37 | CARD ---
APPROVED REPORT EXAM: Two-dimensional and M-mode echocardiogram with Doppler and color Doppler. Other Information Quality : TDSRhythm : NSR INDICATION CVA/TIA Multiple Myeloma Seizure 2D DIMENSIONS IVSd1.2 (0.7-1.1cm)LVDd4.7 (3.9-5.9cm) PWd1.1 (0.7-1.1cm)LVDs3.0 (2.5-4.0cm) FS (%) 36.1 %LVEF (%)65.7 (>50%) M-Mode DIMENSIONS Left Atrium (MM)4.10 (2.5-4.0cm)Aortic Root3.43 (2.2-3.7cm) Aortic Cusp Exc.2.05 (1.5-2.0cm) Mitral Valve MV E Kafugsbr23.5cm/sMV A Ynihuiwr62.9cm/sE/A ratio0.8 TDI E/Lateral E'0.0E/Medial E'0.0 Tricuspid Valve TR Peak [id number] Peak [id number] LEFT VENTRICLE The left ventricle is normal size. There is borderline concentric left ventricular hypertrophy. Left ventricle systolic function is normal. The Ejection Fraction is 65-70%. There is normal LV segmental wall motion. Tissue Doppler imaging reveals abnormal left ventricular diastolic dysfunction. RIGHT VENTRICLE The right ventricle is normal size. There is normal right ventricular wall thickness. The right ventricular systolic function is normal. ATRIA The left atrium size is normal. The right atrium size is normal. The interatrial septum is intact with no evidence for an atrial septal defect. AORTIC VALVE The aortic valve is normal in structure. No aortic regurgitation is present. There is no aortic valvular stenosis. There is no aortic valvular vegetation. MITRAL VALVE The mitral valve is normal in structure. There is no evidence of mitral valve prolapse. There is no mitral valve stenosis. There is no mitral valve regurgitation noted. TRICUSPID VALVE The tricuspid valve is normal in structure. There is trace to mild tricuspid regurgitation. Right ventricular systolic pressure is estimated at less than 30 mmHg. There is no pulmonary hypertension. PULMONIC VALVE The pulmonic valve is not well visualized. There is no pulmonic valvular regurgitation. GREAT VESSELS The aortic root is normal in size. PERICARDIAL EFFUSION There is no significant pericardial effusion. <Conclusion> Left ventricle systolic function is normal. The Ejection Fraction is 65-70%. Diastolic dysfunction. No aortic regurgitation is present. There is no mitral valve regurgitation noted. There is trace to mild tricuspid regurgitation. There is no pulmonary hypertension. There is no pulmonic valvular regurgitation.
--- NOTE | 2017-05-22 15:40 | CARD ---
APPROVED REPORT EKG Measurement Heart [id number] <Conclusion> Sinus tachycardia Moderate voltage criteria for LVH, may be normal variant Borderline ECG
--- NOTE | 2017-05-23 00:41 | CP.PCM.DIS ---
Provider - Provider Date of Admission: 05/21/17 04:56 Attending physician: Barrera De Paz MD Time Spent in preparation of Discharge (in minutes): 54 Diagnosis - Discharge Diagnosis (1) Altered mental status Status: Acute (2) Multiple myeloma Status: Acute Hospital Course - Lab Results Lab Results: Most Recent Lab Values WBC 7.9 K/uL (4.8-10.8) 05/22/17 05:34 RBC 3.05 Mil/uL (4.40-5.90) L 05/22/17 05:34 Hgb 9.4 g/dL (12.0-18.0) L D 05/22/17 05:34 Hct 28.9 % (35.0-51.0) L 05/22/17 05:34 MCV 94.7 fL (80.0-94.0) H 05/22/17 05:34 MCH 30.9 pg (27.0-31.0) 05/22/17 05:34 MCHC 32.6 g/dL (33.0-37.0) L 05/22/17 05:34 RDW 21.0 % (11.5-14.5) H 05/22/17 05:34 Plt Count 161 K/uL (130-400) 05/22/17 05:34 MPV 9.0 fL (7.2-11.7) 05/22/17 05:34 Neut % (Auto) 78.1 % (50.0-75.0) H 05/22/17 05:34 Lymph % (Auto) 8.8 % (20.0-40.0) L 05/22/17 05:34 [place] % (Auto) 12.9 % (0.0-10.0) H 05/22/17 05:34 Eos % (Auto) 0.1 % (0.0-4.0) 05/22/17 05:34 Baso % (Auto) 0.1 % (0.0-2.0) 05/22/17 05:34 Neut # 6.2 K/uL (1.8-7.0) 05/22/17 05:34 Lymph # 0.7 K/uL (1.0-4.3) L 05/22/17 05:34 [place] # 1.0 K/uL (0.0-0.8) H 05/22/17 05:34 Eos # 0.0 K/uL (0.0-0.7) 05/22/17 05:34 Baso # 0.0 K/uL (0.0-0.2) 05/22/17 05:34 Neutrophils % (Manual) 79 % (50-75) H 05/22/17 05:34 Band Neutrophils % 2 % (0-2) 05/22/17 05:34 Lymphocytes % (Manual) 10 % (20-40) L 05/22/17 05:34 Monocytes % (Manual) 9 % (0-10) 05/22/17 05:34 Metamyelocytes % 1 % (0-0) H 05/21/17 04:04 Platelet Estimate Normal (NORMAL) 05/22/17 05:34 Polychromasia Slight 05/22/17 05:34 Hypochromasia (manual) Slight 05/22/17 05:34 Anisocytosis (manual) Slight 05/22/17 05:34 PT 11.4 SECONDS (9.7-12.2) 05/21/17 04:04 INR 1.0 05/21/17 04:04 APTT 24 SECONDS (21-34) 05/21/17 04:04 Sodium 135 mmol/L (132-148) 05/22/17 05:34 Potassium 4.2 mmol/L (3.6-5.2) 05/22/17 05:34 Chloride 105 mmol/L (98-107) 05/22/17 05:34 Carbon Dioxide 21 mmol/L (22-30) L 05/22/17 05:34 Anion Gap 13 (10-20) 05/22/17 05:34 BUN 22 mg/dL (9-20) H 05/22/17 05:34 Creatinine 0.8 mg/dL (0.8-1.5) 05/22/17 05:34 Est GFR ( Amer) > 60 05/22/17 05:34 Est GFR (Non-Af Amer) > 60 05/22/17 05:34 POC Glucose (mg/dL) 238 mg/dL (65-110) H 05/22/17 05:50 Random Glucose 190 mg/dL (75-110) H 05/22/17 05:34 Hemoglobin A1c 8.7 % (4.2-6.5) H 05/21/17 04:04 Calcium 7.9 mg/dl (8.6-10.4) L 05/22/17 05:34 Phosphorus 3.6 mg/dL (2.5-4.5) 05/22/17 05:34 Magnesium 2.4 mg/dL (1.6-2.3) H 05/22/17 05:34 Total Bilirubin 0.4 mg/dL (0.2-1.3) 05/22/17 05:34 AST 15 U/L (17-59) L D 05/22/17 05:34 ALT 39 U/L (21-72) 05/22/17 05:34 Alkaline Phosphatase 40 U/L (38-126) 05/22/17 05:34 Total Creatine Kinase 28 U/L (55-170) L 05/21/17 04:04 CK-MB (Mass) 0.65 ng/mL (0.0-3.38) 05/21/17 04:04 Troponin I, Quant < 0.0120 ng/mL (0.00-0.120) 05/21/17 04:04 NT-Pro-B Natriuret Pep 259 pg/mL (0-900) 05/21/17 04:04 Total Protein 6.0 g/dL (6.3-8.3) L 05/22/17 05:34 Albumin 3.2 g/dL (3.5-5.0) L 05/22/17 05:34 Globulin 2.9 gm/dL (2.2-3.9) 05/22/17 05:34 Albumin/Globulin Ratio 1.1 (1.0-2.1) 05/22/17 05:34 Triglycerides 89 mg/dL (0-149) 05/21/17 04:04 Cholesterol 317 mg/dL (0-199) H 05/21/17 04:04 LDL Cholesterol Direct 247 mg/dL (0-129) H 05/21/17 04:04 HDL Cholesterol 67 mg/dL (30-70) 05/21/17 04:04 Urine Opiates Screen Negative (NEGATIVE) 05/21/17 13:58 Urine Methadone Screen Negative (NEGATIVE) 05/21/17 13:58 Ur Barbiturates Screen Negative (NEGATIVE) 05/21/17 13:58 Ur Phencyclidine Scrn Negative (NEGATIVE) 05/21/17 13:58 Ur Amphetamines Screen Negative (NEGATIVE) 05/21/17 13:58 U Benzodiazepines Scrn Positive (NEGATIVE) 05/21/17 13:58 U Oth Cocaine Metabols Negative (NEGATIVE) 05/21/17 13:58 U Cannabinoids Screen Negative (NEGATIVE) 05/21/17 13:58 - Hospital Course Hospital Course: Pt is feeling better, is for discharge today will transfer to [facility] Discharge Exam - Head Exam Head Exam: ATRAUMATIC, NORMAL INSPECTION - Eye Exam Eye Exam: EOMI, Normal appearance, PERRL Pupil Exam: NORMAL ACCOMODATION, PERRL - ENT Exam ENT Exam: Mucous Membranes Dry - Respiratory Exam Respiratory Exam: Decreased Breath Sounds, Rales, Rhonchi - Cardiovascular Exam Cardiovascular Exam: +S1, +S2, +S4 Discharge Plan - Follow Up Plan Condition: GUARDED Disposition: Trans to Other Acute Care Hosp
== END 2017-05-22 07:00 | disposition short-term general hospital (02) | DRG 948 ==
LOC: C.ER 03:48 → C.9E 04:56 → C.9I 05:10
PROVIDERS: ADMIT Internal Medicine; ATTEND Internal Medicine
DX: R41.82 Altered mental status, unspecified (principal); C90.00 Multiple myeloma not having achieved remission; Z94.81 Bone marrow transplant status; G81.04 Flaccid hemiplegia affecting left nondominant side; I48.91 Unspecified atrial fibrillation; I10 Essential (primary) hypertension; G40.909 Epilepsy, unspecified, not intractable, without status epilepticus; E11.9 Type 2 diabetes mellitus without complications; Z91.81 History of falling; Z79.4 Long term (current) use of insulin; E78.5 Hyperlipidemia, unspecified